=== PATIENT | male | born 1995 | race African-American/Black ===

== ENCOUNTER 2021-11-16 23:45 | Emergency (ER) | payer SELFPAY ==
[2021-11-16] MEDS ORDERED: Calcium Chloride 1 GM/10 ML Abboject SYRINGE ONE (23:52)
[2021-11-16] MEDS ORDERED: EPINEPHrine 1 MG/10 ML Abboject SYRINGE ONE (23:52)
== END 2021-11-16 23:58 | disposition expired ==
LOC: ERS 23:47 → EDBD 23:47 → ERS 23:58
DX: I46.9 Cardiac arrest, cause unspecified (principal)
CPT/HCPCS: 92950; J0171